=== PATIENT | male | born 1980 | race Two or more races ===

== ENCOUNTER 2021-02-01 18:16 | Emergency (ER) | payer OTHER ==
[~2021-02-01] VITALS: Ht 167.6 cm; Wt 90.7 kg
[2021-02-02] MEDS ORDERED: CEPHALEXIN750 MG PO (03:02)
== END 2021-02-02 03:37 | disposition home or self-care (01) ==
LOC: ER 18:16
DX: N39.0 Urinary tract infection, site not specified (principal)

== ENCOUNTER 2021-08-19 13:20 | Emergency (ER) | payer OTHER ==
[~2021-08-19] VITALS: Ht 165.1 cm; Wt 104.3 kg
[~2021-08-19 13:20] MED LIST: CEPHALEXIN750 MG PO
[2021-08-19] MEDS ORDERED: KETO10TA2 PO (15:43)
[2021-08-19] MEDS ORDERED: MEDROLPACK PO (15:43)
[2021-08-19] MEDS ORDERED: NORFLEX100MG PO (15:43)
== END 2021-08-19 15:55 | disposition home or self-care (01) ==
LOC: ER 13:20
DX: M54.2 Cervicalgia (principal); M54.59 Other low back pain